=== PATIENT | male | born 1945 | race Caucasian/White ===

== ENCOUNTER 2021-06-14 13:50 | Outpatient (CLI) | payer MEDICARE, OTHER ==
[2021-06-15 07:41] LABS: SARS-CoV-2 PCR by NAA Not Detected (NotDetected)
== END 2021-06-14 13:51 | disposition home or self-care (01) ==
LOC: CSHLAB 13:50
PROVIDERS: ATTEND Internal Medicine Cardiovascular Disease
DX: Z20.822 Contact with and (suspected) exposure to COVID-19 (principal)
CPT/HCPCS: U0003; U0005

== ENCOUNTER 2021-07-16 11:05 | Outpatient (CLI) | payer MEDICARE, OTHER ==
[2021-07-17 12:10] LABS: SARS-CoV-2 PCR by NAA Not Detected (NotDetected)
== END 2021-07-16 11:06 | disposition home or self-care (01) ==
LOC: CSHLAB 11:05
PROVIDERS: ATTEND Internal Medicine Cardiovascular Disease
DX: Z20.822 Contact with and (suspected) exposure to COVID-19 (principal)
CPT/HCPCS: U0003; U0005

== ENCOUNTER 2021-07-21 12:31 | Outpatient (CLI) | payer MEDICARE, OTHER | END 2021-07-21 12:32 | disposition home or self-care (01) | LOC: CSHCP 12:31 | PROVIDERS: ATTEND Internal Medicine Cardiovascular Disease | DX: R06.02 Shortness of breath (principal); J44.9 Chronic obstructive pulmonary disease, unspecified | CPT/HCPCS: 94150; 94726; 94729; 94760 ==